=== PATIENT | male | born 1970 | race Caucasian/White ===

== ENCOUNTER 2022-03-22 13:20 | Outpatient (CLI) | payer BC, SELFPAY | END 2022-03-22 13:21 | disposition home or self-care (01) | PROVIDERS: PCP Family Medicine; Visit Provider Family Medicine | DX: N13.2 Hydronephrosis with renal and ureteral calculous obstruction (principal); R30.0 Dysuria; N39.0 Urinary tract infection, site not specified | CPT/HCPCS: 87086 ==

== ENCOUNTER 2022-04-05 09:26 | Outpatient (CLI) | payer BC, SELFPAY | END 2022-04-05 09:27 | disposition home or self-care (01) | PROVIDERS: PCP Family Medicine; Visit Provider Family Medicine | DX: N50.89 Other specified disorders of the male genital organs (principal); R30.0 Dysuria | CPT/HCPCS: 87086 ==

== ENCOUNTER 2024-04-14 10:37 | Outpatient (CLI) | payer BC, SELFPAY | END 2024-04-14 10:38 | disposition home or self-care (01) | LOC: NFLDREF 04-21 04:45 | PROVIDERS: PCP Family Medicine; Referring Provider Family Medicine; Visit Provider Family Medicine | DX: Z13.1 Encounter for screening for diabetes mellitus (principal); Z13.220 Encounter for screening for lipoid disorders | CPT/HCPCS: 80061; 82947 ==

== ENCOUNTER 2025-02-19 13:51 | Inpatient (IN) | payer BC, SELFPAY ==
[2025-02-19] VITALS (8 sets, daily range): BP systolic 129–157; BP diastolic 84–93; PULSE 69–88; RESP 16–18; TEMP 36.8–37; O2SAT 95–97; BMI 28.6; BMI 28.0; BMI 28.1
--- OUTSIDE RECORDS SUMMARY | 2025-02-19 14:07 | XMS_ITS | Clinical Summary ---
Author Organization [facility] Address [address] [place] [id number] Care Team Providers Care Manager Utilization Management Name Role Phone Pcp, No Primary Care Provider Unavailabl e Allergies Active Allergy Reactions Criticality Noted Date Comments Doxycycline Dizziness 08/14/2018 Levofloxacin Other - Describe In Comment Field 08/14/2018 Achilles tendon injury Tetracycline Dizziness 10/09/2018 Medications fluticasone (50 mcg per actuation) nasal solution (FLONASE) Inhale 1 Hern[place] into both nostrils once daily. 1 Bottle 0 11/11/19 14 Active HYDROcodone-acet aminophen, 5-325 mg, (NORCO) per tablet Take 1-2 tablets by mouth every 6 hours if needed for Pain Max acetaminophen dose: 4000 mg in 24 hrs. Active cyclobenzaprine (FLEXERIL) 10 mg tablet Take 10 mg by mouth 3 times daily if needed for Muscle Spasm. Active albuterol HFA 90 mcg/actuation inhaler Inhale 2 Puffs by mouth 4 times daily if needed. Active vitamin e 1,000 unit cap Take by mouth once daily. Active cholecalciferol (VITAMIN D3) 1,000 unit capsule Take 1,000 Units by mouth once daily. Active ASCORBIC ACID, VITAMIN C, ORAL Take by mouth once daily. Active famotidine (PEPCID) 10 mg tablet Take 10 mg by mouth once daily. 09/20/19 23 Active levalbuterol (XOPENEX HFA) 45 mcg/actuation inhalerIndicatio ns:Mild intermittent asthma without complication (HC) Inhale 2 Puffs by mouth every 4 hours if needed for Shortness Of Breath or Wheezing. 2 Each 1 06/03/19 25 Active Active Problems Problem Noted Date Diagnosed Date Kidney stones 08/14/2018 Social History Tobacco Use Types Packs/Day Years Used Date Smoking Tobacco: Never Smokeless Tobacco: Never Tobacco Cessation:Counseling Given: Yes Alcohol Use Standard Drinks/Week Comments Never 0 (1 standard drink = 0.6 oz pur e alcohol) Sex and Gender Information Value Date Recorded Sex Assigned at Not on file Legal Sex Male 2:45 PM CDT Gender Identity Not on file Sexual Orientation Not on file Obstetrics History Last Filed Vital Signs Vital Sign Reading Time Taken Comments Blood Pressure 159/90 06/12/2024 10:43 AM CDT Pulse 73 06/12/2024 10:43 AM CDT Temperature 37 C (98.6 F) 10/16/2018 12:48 PM CDT Respiratory Rate 18 06/12/2024 10:43 AM CDT Oxygen Saturation 97% 11/14/2023 1:30 PM CDT Inhaled Oxygen Concentration - - Weight 101.8 kg (224 lb 8 oz) 06/02/2024 3:10 PM [employer] Height 185.4 cm (6' 1) 10/10/2018 1:57 PM CDT Body Mass Index 29.62 10/10/2018 1:57 PM CDT Plan of Treatment Health Maintenance Due Date Last Done Comments Tetanus booster 1980 Depression screening for age 12+ 1981 HIV for age 15-65 1984 BMI (ht and wt on same day) for age 18+ 09/29/1987 Hepatitis C screening for age 18-79 09/29/1987 Hepatitis B series for 19+ (1 of 3 - 19+ 3-dose series ) 1988 Colonoscopy through age 75 2014 Lipids for age 45-75 2014 Pneumococcal series for age 50+ (1 of 1 - PCV) 020 Zoster (shingles) series for age 50+ (1 of 2) 09/29/19 20 Influenza Vaccine (#1) 2024 RSV vaccine for adults or pr egnancy (1 - 1-dose 75+ series) 2044 Medical Devices Implanted Type Area Ballpoint Pen Cartridge Tester Device Identifier Shelf Expiration Date Model / Serial / Lot Stent Uret [id number] Silhouette - [id number] Implanted:Qty: 1 on 10/10/2018 by Rey Pickard MD at [facility] Right: [facility] [employer] Jasmin 03/03/2021 [id number] / / [id number] Insurance [facility] Advance Directives * Full Code (Latest Code Status on File) Date Activated Date Inactivated Comments 10/10/2018 1:32 PM 10/11/2018 2:34 AM Care Teams Manager Utilization Management Relationship Specialty Start Date End Date Pcp, No . PCP - General 04/18/24
--- NOTE | 2025-02-19 14:15 | CRLHL7_ITS ---
For Patients: As a result of the Century Cures Act, medical imaging exams and procedure reports are released immediately into your electronic medical record. You may view this report before your referring provider. If you have questions, please contact your health care provider. INDICATION: Epigastric pain, left lower quadrant pain TECHNIQUE: CT abdomen and pelvis acquired with 106 cc Isovue 370 IV contrast. COMPARISON: CT abdomen and pelvis 08/08/2018 FINDINGS: Lower chest: Unremarkable. Liver: Unremarkable. Normal in size and attenuation. No suspicious masses. Gallbladder and bile ducts: Unremarkable. No stones or inflammation. No biliary dilatation. Pancreas: Unremarkable. No mass or inflammation. Spleen: Unremarkable. Normal in size. No masses. Adrenal glands: Unremarkable. No nodules. Kidneys: Unremarkable. No suspicious masses, stones, or hydronephrosis. GI tract: Thickening and stranding of a segment of lower descending colon. There may be a region of focal perforation along the posteroinferior aspect (5/). No obstruction. The appendix is normal. Vasculature: Abdominal aorta is normal in caliber. Mesenteric arteries are patent. Lymph nodes: No lymphadenopathy. Peritoneum/Abdominal Wall: Unremarkable. No sign of mass or infiltration. No free air or significant free fluid. Pelvis: Unremarkable. Bones: Unremarkable for age. IMPRESSION: Acute diverticulitis of the lower descending colon with possible small focal perforation. No fluid collection. Recommend repeat imaging following resolution of acute episode to exclude possibility of underlying mass Please note that all CT scans at this facility use dose modulation, iterative reconstruction, and/or weight-based dosing when appropriate to reduce radiation dose to as low as reasonably achievable. Dictated by Ariana Mac MD @ 02/19/2025 3:23:04 PM (Electronically Signed)
--- NOTE | 2025-02-19 14:27 | ED.ABDPAIN ---
HPI - Abdominal Pain General Date Seen: 02/19/25 Chief Complaint: Abdominal Pain Stated Complaint: Abdominal pain Time Seen by Provider: 02/19/25 13:59 Source: patient Mode of arrival: ambulatory Limitations: no limitations History of Present Illness HPI narrative: Patient is a 54-year-old male presenting to the emergency department for abdominal pain. Is no pertinent medical problems. Does not take any medications. States starting yesterday he began having some epigastric discomfort abdomen began having left lower quadrant discomfort. States it is sharp in nature has been gradually getting worse. Has not noticed any fevers or chills. Did have an episode of watery diarrhea yesterday. Denies any further diarrhea. Did not notice any blood in his stool. Denies having pain like this before. States he has never had a colonoscopy. Has had kidney stones before but states this feels different. Does have some mild left low back pain that he states felt like it was radiating from his abdomen. Has not noticed any chest pain, shortness of breath, headache, vision changes, weakness, numbness. Does states he has had hematuria for the past month. He has tried to get in with a urologist but has been unsuccessful. States he has not ate since yesterday because she was afraid eating would make the symptoms worse. Has not had any nausea or vomiting. States the pain is currently tolerable Related Data Home Medications ?Medication ?Instructions ?Recorded ?Confirmed cholecalciferol (vitamin D3) 25 1,000 unit PO DAILY 09/19/22 02/19/25 mcg (1,000 unit) tablet famotidine 10 mg tablet 10 mg PO BID 09/19/22 02/19/25 fluticasone propionate 50 2 spray intranasal QDAY PRN 09/19/22 02/19/25 mcg/actuation nasal spray,suspension (Flonase Allergy Relief) vitamin E mixed 400 unit capsule 400 unit PO .QD 09/19/22 02/19/25 Previous Rx's ?Medication ?Instructions ?Recorded albuterol sulfate 90 mcg/actuation 2 puff inhalation Q4-6H PRN 04/16/24 aerosol inhaler (Ventolin HFA) shortness of breath or wheezing #8.5 grams Allergies Allergy/AdvReac Type Severity Reaction Status Date / Time levofloxacin (From [employer]) Allergy Severe Fainting Verified 02/19/25 14:01 lidocaine Allergy Severe Chest Pain Verified 02/19/25 17:16 doxycycline Allergy Intermediate Dizziness Verified 02/19/25 14:01 tetracycline Allergy Mild Dizziness Verified 02/19/25 14:01 Review of Systems Status of ROS Reports: 10 or more systems reviewed and unremarkable except as noted in History and below [facility] Medical History (Updated 02/19/25 @ 17:34 by Marylu Tim MD) Personal history of kidney stones ?Z87.442 - Personal history of urinary calculi (ICD-10) Temporomandibular joint disorder ?M26.609 - Unspecified temporomandibular joint disorder, unspecified side (ICD-10) Hydronephrosis with urinary obstruction due to ureteral calculus (09/23/18) ?N13.2 - Hydronephrosis with renal and ureteral calculous obstruction (ICD-10) Gastroesophageal reflux disease ?K21.9 - Gastro-esophageal reflux disease without esophagitis (ICD-10) Deviated nasal septum ?J34.2 - Deviated nasal septum (ICD-10) Chronic sinusitis ?J32.9 - Chronic sinusitis, unspecified (ICD-10) Surgical History History of wisdom tooth extraction ?K08.409 - Partial loss of teeth, unspecified cause, unspecified class (ICD-10) Family History Father Alzheimers disease Mother Arthritis Social History (Updated 02/19/25 @ 17:27 by Marylu Tim MD) Narrative: 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 No children. Formal exercise. Alcohol none. No illicit drug use. Non-smoker. What is your current living situation?: I presently have a place to live Problems where you live: no known problems In the past 12 months, utilities in danger of being shut off: no In past 12 months, lack of transportation kept you from medical appts, meetings, work, or getting things needed for daily living: no In the past 12 mos, have been you worried that your food would run out before you had money to buy more?: never true In the past 12 mos, the food you bought just didn't last and you didn't have money to buy more?: never true Highest level of school completed/degree received: Associate degree: occupational, technical, vocational program Smoking Status: Never smoker Do you use any of these nicotine containing products: None How often do you have a drink containing alcohol: never AUDIT-C Alcohol total score: 0 Non-prescribed substance use: denies use Caffeine: Yes (pop) How often does anyone, including family, friends and others, physically hurt you: never How often does anyone, including family, friends and others, insult or talk down to you: never How often does anyone, including family, friends and others, threaten you with harm: never How often does anyone, including family, friends and others, scream or curse at you: never service: No Exam Narrative: Exam Narrative: Const: Well-nourished, Well-developed, in mild distress Eyes: PERRL, no conjunctival injection, and symmetrical lids HENT: Atraumatic external nose and ears. Moist mucous membranes. Neck: Symmetric, trachea midline, No thyromegaly. CVS: RRR, No murmurs or gallops. Peripheral pulses 2+ and equal in all extremities RESP: Unlabored respiratory effort. Clear to auscultation bilaterally. GI: Mild epigastric and left lower quadrant tenderness, Nondistended, No rebound or guarding. MSK:Extremities w/o deformity, Normal Active ROM Skin: Warm, Dry. No rashes or lesions. Neuro: Normal Muscle tone, No focal neurological deficits. Psych: Awake, Alert, & Oriented x3. Appropriate mood and affect. Const: Vital Signs, click to edit/add: Vital Signs - 24 hr 02/19/25 14:01 02/19/25 16:20 02/19/25 16:21 Temperature 98.2 F Pulse Rate 86 85 Pulse Rate [Pulse Oximeter] 87 Respiratory Rate 16 Blood Pressure 140/92 H Blood Pressure [Ri ght Upper Arm] 138/91 H Pulse Oximetry 96 96 95 Oxygen Delivery Me thod Room Air 02/19/25 16:30 02/19/25 16:31 Temperature Pulse Rate 88 88 Pulse Rate [Pulse Oximeter] Respiratory Rate Blood Pressure 156/93 H Blood Pressure [Ri ght Upper Arm] Pulse Oximetry 96 96 Oxygen Delivery Me thod Course Vital Signs Vital signs: Initial Vital Signs Temperature 98.2 F 02/19/25 14:01 Temperature Source Temporal Artery Scan 02/19/25 14:01 Pulse Rate 87 02/19/25 14:01 Pulse Rhythm Regular 02/19/25 14:01 Pulse Strength 3+ Normal 02/19/25 14:01 Respiratory Rate 16 02/19/25 14:01 Blood Pressure 138/91 H 02/19/25 14:01 Blood Pressure Mean 106 H 02/19/25 14:01 Blood Pressure Position Sitting 02/19/25 14:01 Pulse Oximetry 96 02/19/25 14:01 Oxygen Delivery Method Room Air 02/19/25 14:01 Vital Signs Temperature 98.2 F 02/19/25 14:01 Pulse Rate 87 02/19/25 14:01 Respiratory Rate 16 02/19/25 14:01 Blood Pressure 138/91 H 02/19/25 14:01 Pulse Oximetry 96 02/19/25 14:01 Oxygen Delivery Method Room Air 02/19/25 14:01 Temperature 98.6 F 02/19/25 20:33 Pulse Rate 76 02/19/25 20:33 Respiratory Rate 18 02/19/25 20:33 Blood Pressure 129/84 02/19/25 20:33 Pulse Oximetry 97 02/19/25 20:33 Oxygen Delivery Method Room Air 02/19/25 20:33 Medications Administered Medications: Generic Name Dose Route Start Last Admin Trade Name Freq PRN Reason Stop Dose Admin Famotidine 10 mg 02/19/25 21:00 02/19/25 20:37 Famotidine 20 Mg Tablet PO Not Given BID HALEIGH Sodium Chloride 5 ml 02/19/25 21:00 02/19/25 20:37 Sodium Chloride 0.9 % (Flush) 10 Ml Syringe IVF 5 ml BID HALEIGH Administration Discontinued Medications Generic Name Dose Route Start Last Admin Trade Name Frejonathan PRN Reason Stop Dose Admin Ertapenem 1 gm/ Sodium 100 mls @ 200 mls/hr 02/19/25 15:49 02/19/25 17:18 Chloride IVPB 02/19/25 15:50 Infused ONCE ONE Infusion MDM - Abdominal Pain Lab Data Labs: Lab Results 02/19/25 02/19/25 02/19/25 Range/Units 14:15 14:30 15:48 WBC 9.29 (4.50-11.00) K/uL RBC 5.19 (4.30-5.90) m/uL Hgb 15.2 (13.5-17.5) gm/dL Hct 45.7 (37.0-53.0) % MCV 88 (80-100) fL MCH 29 (26-34) pg MCHC 33 (32-36) gm/dL RDW Coeff of Lul 12.3 (11.5-15.5) % Plt Count 207 (140-440) K/uL Neut % (Auto) 79.1 H (42.0-72.0) % Lymph % (Auto) 11.7 L (20-44) % [place] % (Auto) 8.5 (0.0-11.0) % Eos % (Auto) 0.4 (0.0-7.0) % Baso % (Auto) 0.1 (0.0-3.0) % Neut # (Auto) 7.30 H (1.7-7.0) K/uL Lymph # (Auto) 1.10 (0.90-2.90) K/uL [place] # (Auto) 0.80 (0.00-0.90) K/UL Eos # (Auto) 0.04 (0.00-0.50) K/uL Baso # (Auto) 0.01 (0.00-0.30) K/uL Abs Immat Gran (auto) 0.02 (0.00-0.30) K/uL Imm/Tot Granulo (auto) 0.2 % Sodium 136 (135-149) mmol/L Potassium 3.8 (3.6-5.1) mmol/L Chloride 101 (96-114) mmol/L Carbon Dioxide 24 (20-32) mmol/L Anion Gap 11 (7-15) mEq/L BUN 16 (7-30) mg/dL Creatinine 0.9 (0.5-1.5) mg/dL Estimated Creat Clear 104.81 Estimated GFR 101 ml/min Glucose 102 (60-115) mg/dL Calcium 9.2 (8.4-10.6) mg/dL Total Bilirubin 1.7 H (0.1-1.5) mg/dL Direct Bilirubin 0.5 (0.0-0.5) mg/dL AST 24 (12-35) U/L ALT 27 (4-50) U/L Alkaline Phosphatase 85 (40-150) U/L Total Protein 8.2 (6.0-8.3) g/dL Albumin 4.6 (3.3-5.0) g/dL Lipase 49 (23-300) U/L Urine Color (Yellow) Urine Appearance (Clear) Urine pH (5.0-8.5) Ur Specific [place] (1.000-1.030) Urine Protein (Negative) Urine Glucose (UA) (Negative) Urine Ketones (Negative) Urine Blood (Negative) Urine Nitrite (Negative) Urine Bilirubin (Negative) Urine Urobilinogen (0.2-1.0) Ur Leukocyte Esterase (Negative) Urine RBC (0-2) Urine WBC (0-5) Ur Squamous Epith Cells (None-Few) Urine Bacteria (None) Lab Acknowledgement Test Added POC Creatinine 1.0 (0.6-1.3) mg/dl 02/19/25 Range/Units 15:49 WBC (4.50-11.00) K/uL RBC (4.30-5.90) m/uL Hgb (13.5-17.5) gm/dL Hct (37.0-53.0) % MCV (80-100) fL MCH (26-34) pg MCHC (32-36) gm/dL RDW Coeff of Lul (11.5-15.5) % Plt Count (140-440) K/uL Neut % (Auto) (42.0-72.0) % Lymph % (Auto) (20-44) % [place] % (Auto) (0.0-11.0) % Eos % (Auto) (0.0-7.0) % Baso % (Auto) (0.0-3.0) % Neut # (Auto) (1.7-7.0) K/uL Lymph # (Auto) (0.90-2.90) K/uL [place] # (Auto) (0.00-0.90) K/UL Eos # (Auto) (0.00-0.50) K/uL Baso # (Auto) (0.00-0.30) K/uL Abs Immat Gran (auto) (0.00-0.30) K/uL Imm/Tot Granulo (auto) % Sodium (135-149) mmol/L Potassium (3.6-5.1) mmol/L Chloride (96-114) mmol/L Carbon Dioxide (20-32) mmol/L Anion Gap (7-15) mEq/L BUN (7-30) mg/dL Creatinine (0.5-1.5) mg/dL Estimated Creat Clear Estimated GFR ml/min Glucose (60-115) mg/dL Calcium (8.4-10.6) mg/dL Total Bilirubin (0.1-1.5) mg/dL Direct Bilirubin (0.0-0.5) mg/dL AST (12-35) U/L ALT (4-50) U/L Alkaline Phosphatase (40-150) U/L Total Protein (6.0-8.3) g/dL Albumin (3.3-5.0) g/dL Lipase (23-300) U/L Urine Color Yellow (Yellow) Urine Appearance Clear (Clear) Urine pH 6.5 (5.0-8.5) Ur Specific [place] 1.010 (1.000-1.030) Urine Protein Negative (Negative) Urine Glucose (UA) Negative (Negative) Urine Ketones Trace A (Negative) Urine Blood Trace-intact A (Negative) Urine Nitrite Negative (Negative) Urine Bilirubin Negative (Negative) Urine Urobilinogen 0.2 (0.2-1.0) Ur Leukocyte Esterase Negative (Negative) Urine RBC 0-2 (0-2) Urine WBC 0-2 (0-5) Ur Squamous Epith Cells Few (None-Few) Urine Bacteria None (None) Lab Acknowledgement POC Creatinine (0.6-1.3) mg/dl
[2025-02-19 14:42] LABS: Hematocrit* 45.7 % (37.0-53.0); Hemoglobin* 15.2 gm/dL (13.5-17.5); Immature Granulocytes Abs Auto 0.02 K/uL (0.00-0.30); Immature Granulocytes Pct Auto 0.2 %; Mean Corpuscular HGB Conc 33 gm/dL (32-36); Mean Corpuscular Hemoglobin 29 pg (26-34); Mean Corpuscular Volume 88 fL (80-100); RDW Coefficient of Variation % 12.3 % (11.5-15.5); Red Blood Count* 5.19 m/uL (4.30-5.90); White Blood Count* 9.29 K/uL (4.50-11.00)
[2025-02-19 14:44] LABS: Creatinine, Point-of-Care* 1.0 mg/dl (0.6-1.3)
[2025-02-19 14:45] LABS: Lymphocytes Absolute Auto 1.10 K/uL (0.90-2.90)
[2025-02-19 14:46] LABS: Slide Review Reflex No
[2025-02-19 14:57] LABS: Albumin* 4.6 g/dL (3.3-5.0); Chloride* 101 mmol/L (96-114); Potassium* 3.8 mmol/L (3.6-5.1); Sodium* 136 mmol/L (135-149)
[2025-02-19 15:00] LABS: Alanine Aminotransferase* 27 U/L (4-50); Alkaline Phosphatase* 85 U/L (40-150); Anion Gap 11 mEq/L (7-15); Aspartate Amino Transferase* 24 U/L (12-35); Blood Urea Nitrogen* 16 mg/dL (7-30); Calcium* 9.2 mg/dL (8.4-10.6); Carbon Dioxide* 24 mmol/L (20-32); Creatinine* 0.9 mg/dL (0.5-1.5); Est. Creatinine Clearance* 104.81; Estimated Glomerular Filt Rate 101 ml/min; Glucose* 102 mg/dL (60-115); Total Protein* 8.2 g/dL (6.0-8.3)
[2025-02-19 15:56] LABS: Appearance Urine Clear (Clear)
[2025-02-19] MEDS: ERTAPENEM 1 GM in 0.9 % SODIUM CHLORIDE Mini-bag 100 ML IVPB (16:11)
[2025-02-19 16:28] LABS: Bilirubin Direct* 0.5 mg/dL (0.0-0.5); Bilirubin Total* 1.7 mg/dL (0.1-1.5)
--- NOTE | 2025-02-19 17:23 | P.IMHP_ITS ---
Assessment and Plan Assessment and plan (1) Diverticulitis of colon with perforation: Problem comment: - noted on 02/19/25 CT - IV Ertapenem, clear liquid diet - will need outpatient colonoscopy after hospitalization, patient aware Status: Acute (2) Hematuria: Problem comment: - incidentally noted on 02/19 UA, outpatient f/u Status: Acute Plan - per above Hospitalist- H&P: HPI History of Present Illness Date Seen: 02/19/25 Chief complaint: Abdominal pain Narrative: Jacoby Frederick is a 54 year old male who presented to the emergency room today for abdominal pain. He has had symptoms for approximately 2 days, started in epigastrium and then became more generalized. One episode of diarrhea yesterday. No melena or hematochezia. Has felt warm, no documented fevers. No urinary symptoms. No recent diet changes. Has never had a colonoscopy. ER course and findings: - white blood count 9 with mild PMN predominance - CMP within normal limits with the exception of bilirubin at 1.6 - trace hematuria - CT of abdomen and pelvis demonstrates acute diverticulitis with possible small focal perforation, no fluid collection - general surgery consulted who recommends IV ertapenem, outpatient colonoscopy after resolution of acute illness Jacoby is generally healthy, takes no prescription medications. Dr. Garrett is PCP. Review of Systems Status of ROS: Reports: 10 or more systems reviewed and unremarkable except as noted in History and below Medical Decision Making Medical Decision Making Code Status: Full Has patient completed a Health Care Directive: No During This Stay, Who Would You Like To Make Decisions For You In The Event You Are Unable To Make Them For Yourself?: Mother Mirtha [facility] Medical History (Updated 02/19/25 @ 17:33 by Marylu Tim MD) Personal history of kidney stones ?Z87.442 - Personal history of urinary calculi (ICD-10) Temporomandibular joint disorder ?M26.609 - Unspecified temporomandibular joint disorder, unspecified side (ICD-10) Hydronephrosis with urinary obstruction due to ureteral calculus (09/23/18) ?N13.2 - Hydronephrosis with renal and ureteral calculous obstruction (ICD- 10) Gastroesophageal reflux disease ?K21.9 - Gastro-esophageal reflux disease without esophagitis (ICD-10) Deviated nasal septum ?J34.2 - Deviated nasal septum (ICD-10) Chronic sinusitis ?J32.9 - Chronic sinusitis, unspecified (ICD-10) Surgical History History of wisdom tooth extraction ?K08.409 - Partial loss of teeth, unspecified cause, unspecified class (ICD- 10) Family History Father Alzheimers disease Mother Arthritis Social History (Updated 02/19/25 @ 17:27 by Marylu Tim MD) Narrative: 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 No children. Formal exercise. Alcohol none. No illicit drug use. Non-smoker. What is your current living situation?: I presently have a place to live Problems where you live: no known problems In the past 12 months, utilities in danger of being shut off: no In past 12 months, lack of transportation kept you from medical appts, meetings, work, or getting things needed for daily living: no In the past 12 mos, have been you worried that your food would run out before you had money to buy more?: never true In the past 12 mos, the food you bought just didn't last and you didn't have money to buy more?: never true Highest level of school completed/degree received: Associate degree: occupational, technical, vocational program Smoking Status: Never smoker Do you use any of these nicotine containing products: None How often do you have a drink containing alcohol: never AUDIT-C Alcohol total score: 0 Non-prescribed substance use: denies use Caffeine: Yes (pop) How often does anyone, including family, friends and others, physically hurt you : never How often does anyone, including family, friends and others, insult or talk down to you: never How often does anyone, including family, friends and others, threaten you with harm: never How often does anyone, including family, friends and others, scream or curse at you: never service: No Meds Home Medications and Allergies Home Medications ?Medication ?Instructions ?Recorded ?Confirmed ?Type cholecalciferol (vitamin D3) 25 1,000 unit PO DAILY 02/19/25 History mcg (1,000 unit) tablet famotidine 10 mg tablet 10 mg PO BID 09/19/22 History fluticasone propionate 50 2 spray intranasal QDAY PRN 09/19/22 02/19/25 History mcg/actuation nasal spray,suspension (Flonase Allergy Relief) vitamin E mixed 400 unit capsule 400 unit PO .QD 09/1902/19/25 History albuterol sulfate 90 mcg/actuation 2 puff inhalation Q 4-6H PRN 04/16/24 02/19/25 Rx aerosol inhaler (Ventolin HFA) shortness of breath or wheezing #8.5 grams Allergies Allergy/AdvReac Type Severity Reaction Status Date / Time levofloxacin (From [employer]) Allergy Severe Fainting Verified 02/19/25 14:01 lidocaine Allergy Severe Chest Pain Verified 02/19/25 17:16 doxycycline Allergy Intermediate Dizziness Verified 02/19/25 14:01 tetracycline Allergy Mild Dizziness Verified 02/19/25 14:01 Exam Narrative: Exam Narrative: GEN: Alert and oriented, nontoxic HEENT: EOMIs bilaterally, no scleral icterus CV: RRR, No concerning murmurs R: LCTA bilaterally Ab: Soft, mild distension, tolerates palpation, hypoactive bowel sounds Ext: wwp, no concerning edema Skin: Scattered SKs on back Neuro: No focal, no resting tremor Psych: Appropriate Const: Vital Signs, click to edit/add: Vital Signs - 24 hr 02/19/25 14:01 02/19/25 16:20 02/19/25 16:21 Temperature 98.2 F Pulse Rate 86 85 Pulse Rate [Pulse Oximeter] 87 Respiratory Rate 16 Blood Pressure 140/92 H Blood Pressure [Ri ght Arm] Blood Pressure [Ri ght Upper Arm] 138/91 H Pulse Oximetry 96 96 95 Oxygen Delivery Me thod Room Air 02/19/25 16:30 02/19/25 16:31 02/19/25 17:02 Temperature 98.2 F Pulse Rate 88 88 Pulse Rate [Pulse Oximeter] 88 Respiratory Rate 18 Blood Pressure 156/93 H Blood Pressure [Ri ght Arm] 157/87 H Blood Pressure [Ri ght Upper Arm] Pulse Oximetry 96 96 96 Oxygen Delivery Me thod Room Air Hospitalist - H&P: Result Labs Labs: Short CBC 02/19/25 Range/Units 14:30 WBC 9.29 (4.50-11.00) K/uL Hgb 15.2 (13.5-17.5) gm/dL Hct 45.7 (37.0-53.0) % Plt Count 207 (140-440) K/uL BMP 02/19/25 14:30 Sodium 136 Potassium 3.8 Chloride 101 Carbon Dioxide 24 BUN 16 Creatinine 0.9 Glucose 102 Calcium 9.2 Liver Function 02/19/25 Range/Units 14:30 Total Bilirubin 1.6 H (0.1-1.5) mg/dL Direct Bilirubin 0.5 (0.0-0.5) mg/dL AST 24 (12-35) U/L ALT 27 (4-50) U/L Alkaline Phosphatase 85 (40-150) U/L Albumin 4.6 (3.3-5.0) g/dL Urine 02/19/25 Range/Units 15:49 Urine Color Yellow (Yellow) Urine Appearance Clear (Clear) Urine pH 6.5 (5.0-8.5) Ur Specific [place] 1.010 (1.000-1.030) Urine Protein Negative (Negative) Urine Glucose (UA) Negative (Negative)
--- NOTE | 2025-02-19 18:55 | PC.NURSE ---
End of Shift: Patient is pleasant and cooperative. Patient is vitally stable, lungs clear, BS hypoactive, IV SL. Patient is independent in room. Patient rates abdominal pain 3/10 and has no requested anything for pain and is aware pain meds are available as well as nausea medicine. Patient has slowly been working on eating jello. Patient has urinated x2 since admission. Patient has been up in chair watching tv.
[2025-02-19] MEDS: SODIUM CHLORIDE 0.9 % (FLUSH) 10 ML SYRINGE 5 ML IVF (20:37)
[2025-02-20] VITALS (8 sets, daily range): BP systolic 126–148; BP diastolic 77–96; PULSE 60–77; RESP 16–18; TEMP 36.3–36.9; O2SAT 92–97
[2025-02-20] MEDS: OMEPRAZOLE 20 MG CAPSULE DR 40 MG PO (06:26)
[2025-02-20 06:29] LABS: Hematocrit* 45.6 % (37.0-53.0); Hemoglobin* 14.9 gm/dL (13.5-17.5); Immature Granulocytes Abs Auto 0.01 K/uL (0.00-0.30); Immature Granulocytes Pct Auto 0.2 %; Lymphocytes Absolute Auto 1.21 K/uL (0.90-2.90); Mean Corpuscular HGB Conc 33 gm/dL (32-36); Mean Corpuscular Hemoglobin 29 pg (26-34); Mean Corpuscular Volume 90 fL (80-100); RDW Coefficient of Variation % 12.5 % (11.5-15.5); Red Blood Count* 5.08 m/uL (4.30-5.90); White Blood Count* 5.73 K/uL (4.50-11.00)
[2025-02-20 06:30] LABS: Slide Review Reflex No
[2025-02-20 06:41] LABS: Albumin* 4.4 g/dL (3.3-5.0); Chloride* 100 mmol/L (96-114); Potassium* 4.0 mmol/L (3.6-5.1); Sodium* 136 mmol/L (135-149)
[2025-02-20 06:42] LABS: INR 1.09 (0.91-1.10); Prothrombin Time 15.0 Seconds
[2025-02-20 06:44] LABS: Alanine Aminotransferase* 24 U/L (4-50); Alkaline Phosphatase* 73 U/L (40-150); Anion Gap 10 mEq/L (7-15); Aspartate Amino Transferase* 23 U/L (12-35); Bilirubin Direct* 0.3 mg/dL (0.0-0.5); Bilirubin Total* 1.8 mg/dL (0.1-1.5); Blood Urea Nitrogen* 16 mg/dL (7-30); Carbon Dioxide* 26 mmol/L (20-32); Creatinine* 0.9 mg/dL (0.5-1.5); Est. Creatinine Clearance* 104.81; Estimated Glomerular Filt Rate 101 ml/min; Total Protein* 7.9 g/dL (6.0-8.3)
[2025-02-20 06:45] LABS: Calcium* 9.0 mg/dL (8.4-10.6); Glucose* 98 mg/dL (60-115)
--- NOTE | 2025-02-20 06:51 | PC.NURSE ---
End of shift:?Pt pleasant,?alert?and oriented.?VSS.?Bowel sounds hypoactive.?Pt independent. Pt denied pain throughout?the shift.?Pt in bed, appears to be resting, call light within reach.
[2025-02-20] MEDS: FAMOTIDINE 20 MG TABLET 10 MG PO (09:30)
[2025-02-20] MEDS: SODIUM CHLORIDE 0.9 % (FLUSH) 10 ML SYRINGE 5 ML IVF ×2 (09:31→21:00)
--- NOTE | 2025-02-20 11:18 | W.PC.NUTR.NO ---
Nutrition Progress Note Progress Note Progress Note: RDN with MD consult for diverticulitis. Patient admitted with abdominal pain, found to have diverticulitis. This is a new diagnosis for him. Current weight 211lb 9.6oz; height 6ft 1in; BMI 27.9 kg/m2. Weight has been stable recently. Weight loss noted since April 2024, however this is not significant loss. Current diet order is Full liquids. RDN visited with patient whom reports he does not like most fruits and vegetables. He also does not include whole grains in his diet. He mentioned he has issues with his teeth so he tries to stick with easier to chew foods. Patient was provided diet education on a low fiber diet. Discussed foods to include and foods to avoid until MD recommends advancing to high fiber diet. Education also provided on gradually increasing fiber and following a high fiber diet (25-35 grams/day) long-term.?Also encouraged to drink adequate fluids, in his case at least 10 cups daily. Since it seems like he follows a low-fiber diet at baseline, I recommended he talk with his primary doctor about a fiber supplement. Verbal and written information as well as sample menus provided on both diets from [facility].? Patient verbalized understanding.? RDN's contact information was provided and patient was encouraged to contact RDN with questions.
--- NOTE | 2025-02-20 11:59 | PM.IMPN1 ---
Assessment and Plan Assessment and plan (1) Diverticulitis of colon with perforation: Problem comment: - noted on 02/19/25 CT - d/w Dr. Novak from general surgery: CT shows narrowing, patient at risk for obstruction. Add Miralax to help thin out stool to go through the narrowed area, keep in hospital yet tonight to advance diet slowly to low residue. - Continue IV Ertapenem x 10 days total, PICC placement - f/u with general surgery 1 week, outpatient colonoscopy 6 weeks after hospitalization, patient aware Status: Acute (2) Elevated bilirubin: Problem comment: - ddx: acute illness, [place], other liver disease - stable, liver reassuring on 02/19 CT, follow bilirubin Status: Acute (3) Hematuria: Problem comment: - incidentally noted on 02/19 UA, recently diagnosed with hematospermia in clinic, outpatient f/u Status: Acute Plan - per above Subjective Time Seen by Provider: 09:52 Date Seen: 02/20/25 Interval history: Jacoby is starting to feel better, but still has no appetite. He notes it is easier to swing his legs out of bed due to less pain today. He has flatus, no BM for at least 2 days. I spoke with Dr. Novak from general surgery who looked at the scans with me and noted the narrowed and inflamed portion of his bowel and that he is at risk for obstruction. She recommended adding daily Miralax for 2 weeks and keeping him one more night while I advance his diet slowly to low residue. I went back and spoke to Jacoby to give him these recommendations. He noted that he does not have anyone to be with his mother overnight because his niece, who is coming to be with her today will have to leave before the evening. Exam Narrative: Exam Narrative: General: Awake, alert, oriented. No pallor. No jaundice. Oropharynx: Clear. Mucous membranes moist. Cardiovascular: Regular rate and rhythm. No murmurs, gallops, or rubs. Respiratory: Clear to auscultation bilaterally. No wheezes or crackles. Abdomen: Bowel sounds present. Soft, mildly distended, tender in the left lower quadrant, with no rebound tenderness or guarding. Extremities: No lower extremity edema. Const: Vital Signs, click to edit/add: Vital Signs - 24 hr 02/19/25 14:01 02/19/25 16:20 02/19/25 16:21 Temperature 98.2 F Pulse Rate 86 85 Pulse Rate [Pulse Oximeter] 87 Respiratory Rate 16 Blood Pressure 140/92 H Blood Pressure [Ri ght Arm] Blood Pressure [Ri ght Upper Arm] 138/91 H Pulse Oximetry 96 96 95 Oxygen Delivery Me thod Room Air 02/19/25 16:30 02/19/25 16:31 02/19/25 16:59 Temperature Pulse Rate 88 88 Pulse Rate [Pulse Oximeter] Respiratory Rate Blood Pressure 156/93 H Blood Pressure [Ri ght Arm] Blood Pressure [Ri ght Upper Arm] Pulse Oximetry 96 96 Oxygen Delivery Me thod Room Air 02/19/25 17:02 02/19/25 20:33 02/19/25 23:00 Temperature 98.2 F 98.6 F Pulse Rate Pulse Rate [Pulse Oximeter] 88 76 69 Respiratory Rate 18 18 16 Blood Pressure Blood Pressure [Ri ght Arm] 157/87 H 129/84 Blood Pressure [Ri ght Upper Arm] Pulse Oximetry 96 97 Oxygen Delivery Me thod Room Air Room Air 02/20/25 00:06 02/20/25 04:21 02/20/25 07:45 Temperature 97.5 F L 98.5 F Pulse Rate Pulse Rate [Pulse Oximeter] 69 60 75 Respiratory Rate 16 18 18 Blood Pressure Blood Pressure [Ri ght Arm] 132/87 126/78 Blood Pressure [Ri ght Upper Arm] Pulse Oximetry 97 94 Oxygen Delivery Me thod Room Air Room Air 02/20/25 08:00 Temperature 97.5 F L Pulse Rate Pulse Rate [Pulse Oximeter] 75 Respiratory Rate 18 Blood Pressure Blood Pressure [Ri ght Arm] 139/92 H Blood Pressure [Ri ght Upper Arm] Pulse Oximetry 96 Oxygen Delivery Me thod Room Air Labs Labs: Laboratory Results - last 24 hr 02/19/25 02/19/25 02/19/25 14:15 14:30 15:48 WBC 9.29 RBC 5.19 Hgb 15.2 Hct 45.7 MCV 88 MCH 29 MCHC 33 RDW Coeff of Lul 12.3 Plt Count 207 Neut % (Auto) 79.1 H Lymph % (Auto) 11.7 L [place] % (Auto) 8.5 Eos % (Auto) 0.4 Baso % (Auto) 0.1 Neut # (Auto) 7.30 H Lymph # (Auto) 1.10 [place] # (Auto) 0.80 Eos # (Auto) 0.04 Baso # (Auto) 0.01 Abs Immat Gran (auto) 0.02 Imm/Tot Granulo (auto) 0.2 INR Sodium 136 Potassium 3.8 Chloride 101 Carbon Dioxide 24 Anion Gap 11 BUN 16 Creatinine 0.9 Estimated Creat Clear 104.81 Estimated GFR 101 Glucose 102 Calcium 9.2 Total Bilirubin 1.7 H Direct Bilirubin 0.5 AST 24 ALT 27 Alkaline Phosphatase 85 Total Protein 8.2 Albumin 4.6 Lipase 49 Urine Color Urine Appearance Urine pH Ur Specific [place] Urine Protein Urine Glucose (UA) Urine Ketones Urine Blood Urine Nitrite Urine Bilirubin Urine Urobilinogen Ur Leukocyte Esterase Urine RBC Urine WBC Ur Squamous Epith Cells Urine Bacteria Lab Acknowledgement Test Added POC Creatinine 1.0 02/19/25 02/20/25 15:49 05:44 WBC 5.73 RBC 5.08 Hgb 14.9 Hct 45.6 MCV 90 MCH 29 MCHC 33 RDW Coeff of Lul 12.5 Plt Count 210 Neut % (Auto) 66.3 Lymph % (Auto) 21.1 [place] % (Auto) 10.5 Eos % (Auto) 1.6 Baso % (Auto) 0.3 Neut # (Auto) 3.80 Lymph # (Auto) 1.21 [place] # (Auto) 0.60 Eos # (Auto) 0.09 Baso # (Auto) 0.02 Abs Immat Gran (auto) 0.01 Imm/Tot Granulo (auto) 0.2 INR 1.09 Sodium 136 Potassium 4.0 Chloride 100 Carbon Dioxide 26 Anion Gap 10 BUN 16 Creatinine 0.9 Estimated Creat Clear 104.81 Estimated GFR 101 Glucose 98 Calcium 9.0 Total Bilirubin 1.8 H Direct Bilirubin 0.3 AST 23 ALT 24 Alkaline Phosphatase 73 Total Protein 7.9 Albumin 4.4 Lipase Urine Color Yellow Urine Appearance Clear Urine pH 6.5 Ur Specific [place] 1.010 Urine Protein Negative Urine Glucose (UA) Negative Urine Ketones Trace A Urine Blood Trace-intact A Urine Nitrite Negative Urine Bilirubin Negative Urine Urobilinogen 0.2 Ur Leukocyte Esterase Negative Urine RBC 0-2 Urine WBC 0-2 Ur Squamous Epith Cells Few Urine Bacteria None Lab Acknowledgement POC Creatinine
--- NOTE | 2025-02-20 12:17 | PC.SOCIAL ---
Social work consult: dietary worker met with the pt and provided him with information on home service technician care agencies and respite care agencies. 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 Pt will most likely need to have surgery in the future and will need to plan for a supervision career and guidance counselor to stay with his mother while he is in the hospital for that. Pt was very thankful for the information. Pt states that his niece is staying with his mother right now until at least dinner time and other friends from [employer] have been checking in on her as well. Social work to follow-up as needed.
--- NOTE | 2025-02-20 12:34 | PC.SOCIAL ---
Social work consult: copy worker met with the pt and provided him with information on funeral home attendant care agencies and respite care agencies. 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 Pt will most likely need to have surgery in the future and will need to plan for a supervision life care planner to stay with his mother while he is in the hospital for that. Pt was very thankful for the information. Pt states that his niece is staying with his mother right now until at least dinner time and other friends from [employer] have been checking in on her as well. Social work to follow-up as needed.
[2025-02-20] MEDS: ERTAPENEM 1 GM in 0.9 % SODIUM CHLORIDE Mini-bag 100 ML IVPB (14:56)
--- NOTE | 2025-02-20 18:22 | PC.NURSE ---
End of Shift: Patient pleasant and cooperative, A&O. VSS, afebrile. Midline placed this shift. Denies pain this shift. Tolerating full liquid diet, denies nausea. Independent in room. ?
[2025-02-20] MEDS: ENOXAPARIN 40 MG/0.4 ML INJ SUBCUT (20:59)
[2025-02-21 03:00] VITALS: BP 122/82; PULSE 69; RESP 18; TEMP 36.4; O2SAT 96
--- NOTE | 2025-02-21 05:07 | PC.NURSE ---
End of shift report : AxOx4. VSS. Afebrile. States his abdominal pain is tolerable,?denies prn?pain?medications. Denies nausea.?Pt reports passing gas.?Bowel sounds are active.?R arm restriction?band on?due to R arm midline.?Ambulates?ind?in?room. Call light within reach.??
[2025-02-21] MEDS: OMEPRAZOLE 20 MG CAPSULE DR 40 MG PO (06:26)
[2025-02-21 06:58] LABS: Hematocrit* 48.4 % (37.0-53.0); Hemoglobin* 16.0 gm/dL (13.5-17.5); Immature Granulocytes Abs Auto 0.01 K/uL (0.00-0.30); Immature Granulocytes Pct Auto 0.2 %; Mean Corpuscular HGB Conc 33 gm/dL (32-36); Mean Corpuscular Hemoglobin 30 pg (26-34); Mean Corpuscular Volume 90 fL (80-100); RDW Coefficient of Variation % 12.4 % (11.5-15.5); Red Blood Count* 5.40 m/uL (4.30-5.90); White Blood Count* 5.64 K/uL (4.50-11.00)
[2025-02-21 07:00] VITALS: BP 134/93; PULSE 71; RESP 16; TEMP 36.6; O2SAT 96
[2025-02-21 07:09] LABS: Lymphocytes Absolute Auto 1.10 K/uL (0.90-2.90); Slide Review Reflex No
[2025-02-21 07:30] LABS: Albumin* 4.6 g/dL (3.3-5.0); Chloride* 100 mmol/L (96-114); Potassium* 4.1 mmol/L (3.6-5.1); Sodium* 137 mmol/L (135-149)
[2025-02-21 07:33] LABS: Alanine Aminotransferase* 28 U/L (4-50); Alkaline Phosphatase* 78 U/L (40-150); Anion Gap 10 mEq/L (7-15); Aspartate Amino Transferase* 26 U/L (12-35); Bilirubin Total* 1.5 mg/dL (0.1-1.5); Blood Urea Nitrogen* 18 mg/dL (7-30); Calcium* 9.2 mg/dL (8.4-10.6); Carbon Dioxide* 27 mmol/L (20-32); Creatinine* 1.0 mg/dL (0.5-1.5); Est. Creatinine Clearance* 94.33; Estimated Glomerular Filt Rate 89 ml/min; Glucose* 106 mg/dL (60-115); Total Protein* 8.4 g/dL (6.0-8.3)
--- NOTE | 2025-02-21 08:16 | P.DS_ITS ---
DS: Providers Provider Time Seen by Provider: 07:59 Date Seen: 02/21/25 Date of admission: 02/20/25 11:54 Primary care physician: Nitish Garrett MD Admitting Clinician: Marylu Tim MD Consults: 02/19/25 17:20 Consult to Nutrition [CONS] Routine Comment: Reason for consult:: Miscellaneous Comment: diverticulitis Attending Physician on discharge: Yulia Palma MD Date of Discharge: 02/21/25 DS: Diagnosis Discharge Diagnosis (1) Diverticulitis of colon with perforation: Status: Acute Problem details: - noted on 02/19/25 CT - 02/20 d/w Dr. Novak from general surgery: CT shows narrowing, patient at risk for obstruction. Add Miralax to help thin out stool to go through the narrowed area, keep in hospital yet tonight to advance diet slowly to low residue. - 02/21 ryan low residue diet, +BM this am (mixed solid and liquid, no blood), +flatus, improved pain, no nausea/vomiting, continue miralax x 2 weeks (hold for liquid or explosive stools) - Continue IV Ertapenem x 10 days total, PICC placement - f/u with general surgery 1 week, outpatient colonoscopy 6 weeks after hospitalization, patient aware (2) Hematuria: Status: Acute Problem details: - incidentally noted on 02/19 UA, discussed with patient 02/21/25, recently diagnosed with hematospermia in clinic for which he was referred to urology. Patient states urology has not yet called him to set up f/u. I recommended he call urology or his PCP to follow up on that referral (3) Elevated bilirubin: Status: Resolved Problem details: - ddx: acute illness, [place], other liver disease - 02/20 stable, liver reassuring on 02/19 CT, follow bilirubin - 02/21 resolved DS: Summary Hospital Course Hospital Course: Per H&P: Jacoby Frederick is a 54 year old male who presented to the emergency room today for abdominal pain. He has had symptoms for approximately 2 days, started in epigastrium and then became more generalized. One episode of diarrhea yesterday. No melena or hematochezia. Has felt warm, no documented fevers. No urinary symptoms. No recent diet changes. Has never had a colonoscopy. ER course and findings: - white blood count 9 with mild PMN predominance - CMP within normal limits with the exception of bilirubin at 1.6 - trace hematuria - CT of abdomen and pelvis demonstrates acute diverticulitis with possible small focal perforation, no fluid collection - general surgery consulted who recommends IV ertapenem, outpatient colonoscopy after resolution of acute illness Jacoby was had improvement in pain, no fevers, and tolerated advancing to a low fiber diet. He has flatus and a BM this morning. He got a PICC line yesterday and is discharged home today on outpatient Ertapenem to complete a 10 day course. F/u with gen surgery and for colonoscopy. Time Spent with Patient Time attestation: Total time spent providing and/or coordinating discharge services: Exam Narrative: Exam Narrative: General: Awake, alert, oriented. No pallor. No jaundice. Oropharynx: Clear. Mucous membranes moist. Cardiovascular: Regular rate and rhythm. No murmurs, gallops, or rubs. Respiratory: Clear to auscultation bilaterally. No wheezes or crackles. Abdomen: Bowel sounds present. Soft, mildly distended, tender in the left lower quadrant, with no rebound tenderness or guarding, less tender than yesterday. Extremities: No lower extremity edema. Const: Vital Signs, click to edit/add: Vital Signs - 24 hr 02/20/25 11:00 02/20/25 15:00 02/20/25 15:00 Temperature 97.9 F 97.4 F L Pulse Rate [Pulse Oximeter] 75 75 75 Respiratory Rate 18 18 18 Blood Pressure [Ri ght Arm] 148/96 H 144/86 H Pulse Oximetry 96 96 Oxygen Delivery Me thod Room Air Room Air 02/20/25 19:00 02/20/25 23:00 02/20/25 23:00 Temperature 98.1 F 97.4 F L Pulse Rate [Pulse Oximeter] 77 71 71 Respiratory Rate 16 18 18 Blood Pressure [Ri ght Arm] 139/77 134/94 H Pulse Oximetry 95 92 Oxygen Delivery Me thod Room Air Room Air 02/21/25 03:00 Temperature 97.6 F Pulse Rate [Pulse Oximeter] 69 Respiratory Rate 18 Blood Pressure [Ri ght Arm] 122/82 Pulse Oximetry 96 Oxygen Delivery Me thod Room Air DS: Data Data Completed and Pending Completed studies during hospitalization: Ordering Physician: Fermin Segundo D.O. Date of Service: 02/19/25 Procedure(s): CT abdomen pelvis w con Accession Number(s): [id number] cc: Nitish Garrett M.D.; Fermin Segundo D.O.~ For Patients: As a result of the Century Cures Act, medical imaging exams and procedure reports are released immediately into your electronic medical record. You may view this report before your referring provider. If you have questions, please contact your health care provider. INDICATION: Epigastric pain, left lower quadrant pain TECHNIQUE: CT abdomen and pelvis acquired with 106 cc Isovue 370 IV contrast. COMPARISON: CT abdomen and pelvis 08/08/2018 FINDINGS: Lower chest: Unremarkable. Liver: Unremarkable. Normal in size and attenuation. No suspicious masses. Gallbladder and bile ducts: Unremarkable. No stones or inflammation. No biliary dilatation. Pancreas: Unremarkable. No mass or inflammation. Spleen: Unremarkable. Normal in size. No masses. Adrenal glands: Unremarkable. No nodules. Kidneys: Unremarkable. No suspicious masses, stones, or hydronephrosis. GI tract: Thickening and stranding of a segment of lower descending colon. There may be a region of focal perforation along the posteroinferior aspect (5/66). No obstruction. The appendix is normal. Vasculature: Abdominal aorta is normal in caliber. Mesenteric arteries are patent. Lymph nodes: No lymphadenopathy. Peritoneum/Abdominal Wall: Unremarkable. No sign of mass or infiltration. No free air or significant free fluid. Pelvis: Unremarkable. Bones: Unremarkable for age. IMPRESSION: Acute diverticulitis of the lower descending colon with possible small focal perforation. No fluid collection. Recommend repeat imaging following resolution of acute episode to exclude possibility of underlying mass Please note that all CT scans at this facility use dose modulation, iterative reconstruction, and/or weight-based dosing when appropriate to reduce radiation dose to as low as reasonably achievable. Dictated by Ariana Mac MD @ 02/19/2025 3:23:04 PM (Electronically Signed) Labs on day of discharge: Labs from last 24 hours 02/21/25 06:49 WBC 5.64 RBC 5.40 Hgb 16.0 Hct 48.4 MCV 90 MCH 30 MCHC 33 RDW Coeff of Lul 12.4 Plt Count 211 Neut % (Auto) 67.8 Lymph % (Auto) 19.9 L [place] % (Auto) 10.1 Eos % (Auto) 1.8 Baso % (Auto) 0.2 Neut # (Auto) 3.83 Lymph # (Auto) 1.10 [place] # (Auto) 0.60 Eos # (Auto) 0.10 Baso # (Auto) 0.01 Abs Immat Gran (auto) 0.01 Imm/Tot Granulo (auto) 0.2 Sodium 137 Potassium 4.1 Chloride 100 Carbon Dioxide 27 Anion Gap 10 BUN 18 Creatinine 1.0 Estimated Creat Clear 94.33 Estimated GFR 89 Glucose 106 Calcium 9.2 Total Bilirubin 1.5 AST 26 ALT 28 Alkaline Phosphatase 78 Total Protein 8.4 H Albumin 4.6 Discharge Plan Discharge Disposition: Home, Self-Care Date of Admission: 02/20/25 11:54 Attending Provider on Discharge: Yulia Palma Primary Care Provider: Nitish Garrett Condition: Improved Anticipated Discharge Date/Time: 02/21/25 12:00 Discharge Medications: New polyethylene glycol 3350 17 gram Powder In Packet 17 g PO DAILY 14 Days Qty: 0 0RF Continued fluticasone propionate [Flonase Allergy Relief] 50 mcg/actuation spray,suspension 2 spray intranasal QDAY PRN Rx Instructions: administer into each nostril famotidine 10 mg tablet 10 mg PO BID cholecalciferol (vitamin D3) 25 mcg (1,000 unit) tablet 1,000 unit PO DAILY vitamin E mixed 400 unit capsule 400 unit PO .QD albuterol sulfate [Ventolin HFA] 90 mcg/actuation HFA aerosol inhaler 2 puff inhalation Q4-6H PRN (Reason: shortness of breath or wheezing) Qty: 8.5 3RF Discharge Orders: Discharge Order (Routine); Ordered 02/21/25 Ordered By: Yulia Palma Additional Instructions: General surgery 1 week Ertapenem 1g IV daily x 7days, starting 02/22/25 (ordered through infusion); patient has PICC Activity Level: No Restrictions Discharge Diet: Low Fiber Diet Detail: Low residue/fiber for 2 weeks, then slowly transition to high fiber Follow Up Appointments: Nitish Garrett MD [Primary Care Provider, Family Practice] Referral Note: 1-2 weeks [facility] Info Instructions
[2025-02-21] MEDS: FAMOTIDINE 20 MG TABLET 10 MG PO (09:39)
[2025-02-21] MEDS: ERTAPENEM 1 GM in 0.9 % SODIUM CHLORIDE Mini-bag 100 ML IVPB (12:10)
--- NOTE | 2025-02-21 14:24 | PC.NURSE ---
Discharge: patient's VSS, on RA afebrile this shift, denies N/V/SOB. Patient tolerating a modified diet. Patient's PICC line SL, dressing C/D/I. Patient discharged to home today at 1245 after antibiotic infusion. Discharge instructions given and signed, patient verbalized understanding of instructions. Belongings sheet signed.
== END 2025-02-21 12:45 | disposition home or self-care (01) | DRG 244 ==
LOC: ED 14:42 → MEDSURG 16:50
PROVIDERS: Admitting Provider Family Medicine; Emergency Provider Student in an Organized Health Care Education/Training Program; PCP Family Medicine; Visit Provider Family Medicine
DX: K57.20 Diverticulitis of large intestine with perforation and abscess without bleeding (principal); R31.9 Hematuria, unspecified; K21.9 Gastro-esophageal reflux disease without esophagitis; Z87.442 Personal history of urinary calculi; E80.7 Disorder of bilirubin metabolism, unspecified
CPT/HCPCS: 36410; 36415; 74177; 76937; 80048; 80053; 80076; 81001; 82248; 82565; 83690; 85025; 85610; 99285; A9270; C1751; G0378; J1335; J1650; Q9967